=== PATIENT | female | born 1985 | race Caucasian/White ===

== ENCOUNTER 2017-02-08 11:08 | Emergency (ER) | payer OTHER ==
[~2017-02-08] VITALS: Ht 167.6 cm; Wt 62.3 kg
[2017-02-08 11:09] VITALS: BP 98/58
[2017-02-08 11:44] LABS: HEMOGLOBIN 13.8 g/dL (11.7-16.4)
[2017-02-08 11:55] LABS: BLOOD UREA NITROGEN 15 mg/dL (7-18)
[2017-02-08 11:59] LABS: ASPARTATE AMINO TRANSFERASE 10 U/L (15-37)
[2017-02-08 12:12] LABS: HIV 1&2 ANTIBODY SCREEN Nonreactive (Nonreactive); HIV-1 p24 ANTIGEN Nonreactive (Nonreactive)
[2017-02-09 08:11] LABS: HEP B SURF. AB 13.4 mIU/mL (0.0-10.0)
[2017-02-09 08:49] LABS: HEPATITIS C VIRUS ANTIBODY Nonreactive (Nonreactive)
== END 2017-02-08 11:43 | disposition home or self-care (01) ==
LOC: ED 11:30
DX: S61.231A Puncture wound without foreign body of left index finger without damage to nail, initial encounter (principal); W22.8XXA Striking against or struck by other objects, initial encounter; Y93.89 Activity, other specified; Y99.8 Other external cause status; Y92.89 Other specified places as the place of occurrence of the external cause
CPT/HCPCS: 36415; 80053; 81003; 85025; 86703; 86705; 86706; 86803; 87340; 87899; 99284; G0435

== ENCOUNTER 2018-04-21 06:08 | Day surgery (SDC) | payer OTHER ==
[~2018-04-21] VITALS: Ht 167.6 cm; Wt 67.9 kg
[2018-04-21 07:34] VITALS: BP 111/76
[2018-04-21] MEDS ORDERED: FENTANYL PF 100 MCG/2ML ONE (08:07)
[2018-04-21] MEDS ORDERED: MIDAZOLAM 1 MG/ML, 2ML ONE (08:07)
[2018-04-21] MEDS ORDERED: PROPOFOL 50 ML ONE (08:07)
[2018-04-21] MEDS ORDERED: KETAMINE 10 MG/ML, 20ML ONE (08:35)
[2018-04-21] MEDS ORDERED: ONDANSETRON ODT 8 MG PO PRN (09:30)
[2018-04-21] MEDS ORDERED: MIDAZOLAM 1 MG/ML, 2ML IV PRN (09:30)
[2018-04-21] MEDS ORDERED: MEPERIDINE/PF 25MG/0.5ML IVPush PRN (09:30)
[2018-04-21] MEDS ORDERED: ACETAMINOPHEN 325 MG TABLET PO PRN (09:30)
[2018-04-21] MEDS ORDERED: FENTANYL PF 100 MCG/2ML IV PRN (09:30)
[2018-04-21] MEDS ORDERED: PROMETHAZINE 25 MG/ML, 1ML IV PRN (09:30)
[2018-04-21] MEDS ORDERED: MORPHINE SULFATE 4 MG/ML, 1ML IVPush PRN (09:30)
[2018-04-21] MEDS ORDERED: SCOPOLAMINE PATCH, 1.5MG PATCH.TD72 TD PRN (09:30)
[2018-04-21] MEDS ORDERED: OXYcodone 5 MG/5 ML ORAL.SOL UDC PO PRN (09:30)
[2018-04-21] MEDS ORDERED: HYDROmorphone 1 MG/ML, 1ML IV PRN (09:30)
[2018-04-21] MEDS ORDERED: METOCLOPRAMIDE 5 MG/ML, 2ML IV PRN (09:30)
[2018-04-21] MEDS ORDERED: EPHEDRINE 50 MG/ML, 1ML IM PRN (09:30)
[2018-04-21] MEDS ORDERED: CEFAZOLIN 1,000 MG ONE ×2 (09:53)
[2018-04-21] MEDS ORDERED: DEXAMETHASONE 4 MG/ML, 1ML ONE ×2 (09:53)
[2018-04-21] MEDS ORDERED: HYDROcodone/APAP 5/325 TABLET PO PRN (12:00)
[2018-04-21] MEDS ORDERED: KETOROLAC 30 MG/1 ML IV SCH (12:00)
[2018-04-21] MEDS ORDERED: morphine SULFATE 10 MG/ML, 1ML IV PRN (12:00)
[2018-04-21] MEDS ORDERED: ONDANSETRON 2MG/ML, 2ML IV PRN (12:00)
[2018-05-13] MEDS ORDERED: CALCIUM PO (12:12)
[2018-05-13] MEDS ORDERED: MULT-6 PO (12:12)
[2018-05-13] MEDS ORDERED: VITA1TAB19 PO (12:12)
[2018-05-13] MEDS ORDERED: OXYC-302 PO (19:27)
[2018-05-13] MEDS ORDERED: IBUP-1222 PO (19:28)
[2018-05-13] MEDS ORDERED: DOCU-131 PO (19:28)
== END 2018-04-21 12:14 | disposition home or self-care (01) ==
LOC: EDSTATUS 06:51 → OUT 06:56 → MERGE 06:56 → 4NOR 07:15 → OUT 12:14
PROVIDERS: ATTEND Orthopaedic Surgery
DX: S52.572A Other intraarticular fracture of lower end of left radius, initial encounter for closed fracture (principal); Y93.51 Activity, roller skating (inline) and skateboarding; Y93.89 Activity, other specified; Y92.89 Other specified places as the place of occurrence of the external cause; Y99.8 Other external cause status
CPT/HCPCS: 25609; 64450; 73100; 76000; 81025; J0690; J1100; J2250; J2704; J3010; C1713

== ENCOUNTER → 2018-06-12 | Outpatient (CLI) | payer OTHER ==
[~2018-06-12] MED LIST: CALCIUM PO; DOCU-131 PO; IBUP-1222 PO; MULT-6 PO; OXYC-302 PO; VITA1TAB19 PO
[2018-06-12 12:32] LABS: THYROID STIMULATING HORMONE 1.41 mIU/L (0.358-3.740)
== END | disposition home or self-care (01) ==
LOC: LAB 11:45
PROVIDERS: ATTEND Obstetrics & Gynecology
DX: Z30.015 Encounter for initial prescription of vaginal ring hormonal contraceptive (principal)
CPT/HCPCS: 36415; 84439; 84443; 86592; 86803; 87340; 87806; G0475

== ENCOUNTER 2018-12-13 14:30 | Day surgery (SDC) | payer OTHER ==
[~2018-12-13] VITALS: Ht 170.2 cm; Wt 71.0 kg
[2018-12-13 14:43] VITALS: BP 132/94
[2018-12-13] MEDS ORDERED: LACTATED RINGERS 1,000 ML IV SCH (14:48)
[2018-12-13] MEDS ORDERED: CETI10TA24 PO (15:02)
[2018-12-13 15:14] LABS: HCG UR SG 1.019 (1.003-1.030)
[2018-12-13] MEDS ORDERED: FENTANYL PF 100 MCG/2ML ONE (16:14)
[2018-12-13] MEDS ORDERED: MIDAZOLAM 1 MG/ML, 2ML ONE (16:14)
[2018-12-13] MEDS ORDERED: cloniDINE/PF 100 MCG/ML, 10 ML ONE (16:15)
[2018-12-13] MEDS ORDERED: PROPOFOL 50 ML ONE (16:17)
[2018-12-13] MEDS ORDERED: ONDANSETRON ODT 8 MG PO ONE (16:30)
[2018-12-13] MEDS ORDERED: GABAPENTIN 300 MG CAPSULE PO ONE (16:30)
[2018-12-13] MEDS ORDERED: SCOPOLAMINE PATCH, 1.5MG PATCH.TD72 TD ONE (16:30)
[2018-12-13] MEDS ORDERED: DEXAMETHASONE 4 MG/ML, 1ML ONE (16:35)
[2018-12-13] MEDS ORDERED: CEFAZOLIN 1,000 MG ONE (16:35)
[2018-12-13] MEDS ORDERED: PROMETHAZINE 25 MG/ML, 1ML IV PRN (17:00)
[2018-12-13] MEDS ORDERED: MIDAZOLAM 1 MG/ML, 2ML IV PRN (17:00)
[2018-12-13] MEDS ORDERED: ONDANSETRON 2MG/ML, 2ML IV PRN (17:00)
[2018-12-13] MEDS ORDERED: FENTANYL PF 100 MCG/2ML IV PRN (17:00)
[2018-12-13] MEDS ORDERED: HYDROmorphone 2 MG/ML, 1ML IVPush PRN (17:00)
[2018-12-13] MEDS ORDERED: OXYcodone 5 MG/5 ML ORAL.SOL UDC PO PRN (17:00)
[2018-12-13] MEDS ORDERED: ACETAMINOPHEN 325 MG TABLET PO PRN (17:00)
== END 2018-12-13 18:25 | disposition home or self-care (01) ==
LOC: OR 14:30
PROVIDERS: ATTEND Orthopaedic Surgery
DX: T84.84XA Pain due to internal orthopedic prosthetic devices, implants and grafts, initial encounter (principal); Z79.899 Other long term (current) drug therapy; Z72.89 Other problems related to lifestyle; Y83.8 Other surgical procedures as the cause of abnormal reaction of the patient, or of later complication, without mention of misadventure at the time of the procedure; Y92.89 Other specified places as the place of occurrence of the external cause
CPT/HCPCS: 20680; 64415; 81025; J0690; J0735; J1100; J2250; J2704; J3010; J7120; Q0162

== ENCOUNTER 2019-01-12 16:33 | Emergency (ER) | payer OTHER ==
[~2019-01-12 16:33] MED LIST changes: +CETI10TA24 PO
--- NOTE | 2019-01-12 16:37 | NUR ---
PER REGISTRATION, PT LEFT WITHOUT BEING SEEN.
== END 2019-01-12 16:40 | disposition left against medical advice (07) ==
LOC: ED 16:35
DX: M25.531 Pain in right wrist (principal); Z53.21 Procedure and treatment not carried out due to patient leaving prior to being seen by health care provider

== ENCOUNTER 2019-01-12 16:44 | Emergency (ER) | payer OTHER ==
[~2019-01-12] VITALS: Ht 167.6 cm; Wt 70.9 kg
[2019-01-12 17:32] VITALS: BP 121/83
--- NOTE | 2019-01-12 17:36 | NUR ---
PT HAD LEFT AND THEN RETURNED.
--- NOTE | 2019-01-12 19:10 | NUR ---
Splint placed by EMT, patient requesting pain medication for the night, PA made aware, will write RX. Provided DC information, shown to DC desk.
== END 2019-01-12 19:21 | disposition home or self-care (01) ==
LOC: ED 19:00
DX: S52.614A Nondisplaced fracture of right ulna styloid process, initial encounter for closed fracture (principal); S52.501A Unspecified fracture of the lower end of right radius, initial encounter for closed fracture; W01.0XXA Fall on same level from slipping, tripping and stumbling without subsequent striking against object, initial encounter; Y93.89 Activity, other specified; Y92.098 Other place in other non-institutional residence as the place of occurrence of the external cause; Y99.8 Other external cause status
CPT/HCPCS: 29125; 73110; 73130; 99283; Q0177

== ENCOUNTER → 2019-01-21 | Outpatient (CLI) | payer OTHER ==
[2019-01-21 11:17] LABS: BASOPHILS # (AUTO) 0.03 x10^3/uL (0-0.1); BASOPHILS % (AUTO) 1 % (0-1); EOSINOPHILS # (AUTO) 0.08 x10^3/uL (0-0.4); EOSINOPHILS % (AUTO) 2 % (1-7); LYMPHOCYTES % (AUTO) 41 % (22-44); MD NO; MEAN CORPUSCULAR HEMOGLOBIN 32.2 pg (27.0-34.8); MEAN CORPUSCULAR HGB CONC 33.1 g/dL (32.4-35.8); MEAN CORPUSCULAR VOLUME 97.4 fL (80-100); MONOCYTES # (AUTO) 0.31 x10^3/uL (0.2-0.8); MONOCYTES % (AUTO) 7 % (2-9); NEUTROPHILS # (AUTO) 2.35 x10^3/uL (1.8-6.8); NEUTROPHILS % (AUTO) 50 % (42-75); PLATELET COUNT 186 x10^3/uL (130-400); RED BLOOD COUNT 4.21 x10^6/uL (3.82-5.3); RED CELL DISTRIBUTION WIDTH 13.4 % (9.6-15.2)
[2019-01-21 11:28] LABS: % IRON SATURATION 45 % (20-55); ALANINE AMINOTRANSFERASE 24 U/L (12-78); ALBUMIN 3.7 g/dL (3.4-5.0); ANION GAP 5 mmol/L (5-15); CALCIUM 8.7 mg/dL (8.5-10.1); CHLORIDE 110 mmol/L (98-107); CREATININE 0.69 mg/dL (0.55-1.02); IRON LEVEL 132 mcg/dL (50-170); TOTAL IRON BINDING CAPACITY 295 mcg/dL (250-450)
[2019-01-21 11:36] LABS: ALKALINE PHOSPHATASE 40 U/L (45-117); BILIRUBIN,TOTAL 0.5 mg/dL (0.2-1.0); TOTAL PROTEIN 6.9 g/dL (6.4-8.2)
== END | disposition home or self-care (01) ==
LOC: LAB 10:43
PROVIDERS: ATTEND Orthopaedic Surgery Foot and Ankle Surgery
DX: S52.591A Other fractures of lower end of right radius, initial encounter for closed fracture (principal); M66.242 Spontaneous rupture of extensor tendons, left hand; X58.XXXA Exposure to other specified factors, initial encounter; Y93.89 Activity, other specified; Y92.89 Other specified places as the place of occurrence of the external cause; Y99.8 Other external cause status
CPT/HCPCS: 36415; 80053; 82306; 82523; 83540; 83550; 83735; 84080; 84443; 85025

== ENCOUNTER 2020-10-17 11:14 | Emergency (ER) | payer OTHER ==
[~2020-10-17] VITALS: Ht 170.2 cm; Wt 68.8 kg
[~2020-10-17 11:14] MED LIST changes: -CETI10TA24 PO; +CETI10TA76 PO
[2020-10-17 11:19] VITALS: BP 128/83
--- NOTE | 2020-10-17 11:56 | NUR ---
MULTIMEDIA DESIGNER: PT TO ROOM FROM LOBBY
[2020-10-17 12:17] LABS: BASOPHILS % (AUTO) 1 % (0-1); EOSINOPHILS % (AUTO) 3 % (1-7); LYMPHOCYTES % (AUTO) 36 % (22-44); MEAN CORPUSCULAR HEMOGLOBIN 33.5 pg (27.0-34.8); MEAN CORPUSCULAR HGB CONC 34.2 g/dL (32.4-35.8); MONOCYTES % (AUTO) 7 % (2-9); NEUTROPHILS % (AUTO) 53 % (42-75); PLATELET COUNT 171 x10^3/uL (130-400); RED BLOOD COUNT 4.33 x10^6/uL (3.82-5.3)
[2020-10-17 12:20] LABS: MD NO
[2020-10-17 12:28] LABS: ALBUMIN 4.2 g/dL (3.4-5.0); ANION GAP 5 mmol/L (5-15); CALCIUM 9.1 mg/dL (8.5-10.1); CHLORIDE 108 mmol/L (98-107)
[2020-10-17 12:41] LABS: CREATININE 0.82 mg/dL (0.55-1.02)
== END 2020-10-17 12:49 | disposition home or self-care (01) ==
LOC: ED 12:19
DX: I49.3 Ventricular premature depolarization (principal); R94.31 Abnormal electrocardiogram [ECG] [EKG]
CPT/HCPCS: 36415; 71045; 80048; 82040; 83735; 84443; 85025; 93005; 99285